=== PATIENT | female | born 1950 | race Caucasian/White ===

== ENCOUNTER 2018-02-06 11:52 | Outpatient (CLI) | payer MEDICARE ==
--- NOTE | 2018-02-06 14:48 | BD ---
DEXA BONE DENSITY SCAN: DATE: 02/06/2018. COMPARISON: None. HISTORY: Postmenopausal female undergoing screening for osteoporosis. FINDINGS: Lumbar Spine: BMD (g/cm2) L1 1.383 T-Score: 3.6 L2 1.447 T-Score: 3.8 L3 1.563 T-Score: 4.4 L4 1.361 T-Score: 2.7 L1-L4 1.433 T-Score: 3.5 Femoral Neck: 0.991 T-Score: 1.3 Total Femur: 1.373 T-Score: 3.5 FRAX-WHO fracture risk is not provided as all T-scores are at or above -1.0 Impression: Normal bone mineral density exam. POS: KASI
== END 2018-02-06 11:53 | disposition home or self-care (01) ==
LOC: BICMAMMO 11:52
PROVIDERS: ATTEND Family Medicine
DX: Z12.31 Encounter for screening mammogram for malignant neoplasm of breast (principal); Z13.820 Encounter for screening for osteoporosis; Z78.0 Asymptomatic menopausal state; Z80.3 Family history of malignant neoplasm of breast
CPT/HCPCS: 77063; 77067; 77080

== ENCOUNTER 2018-03-27 10:38 | Outpatient (CLI) | payer MEDICARE ==
--- NOTE | 2018-03-27 12:10 | ULT ---
ULTRASOUND SOFT TISSUE OTHER: Date: 03/27/18 HISTORY: Thumb ligament tear. COMPARISON: Radiograph dated 02/08/15. 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 There is attenuation of the anterior oblique ligament. The radial collateral ligament of the metacarpophalangeal joint is intact. The ulnar collateral ligament of the metacarpophalangeal joint is completely torn with synovitis and scar tissues. There is widening of the joint in abduction. No significant first compartment tenosynovitis. IMPRESSION: Full thickness rupture of ulnar collateral ligament with widening of the joint in abduction. POS: OFF
== END 2018-03-27 10:39 | disposition home or self-care (01) ==
LOC: BICULT 10:38
PROVIDERS: ATTEND Orthopaedic Surgery Hand Surgery
DX: S63.641A Sprain of metacarpophalangeal joint of right thumb, initial encounter (principal)
CPT/HCPCS: 76999

== ENCOUNTER 2021-08-01 12:50 | Outpatient (CLI) | payer MEDICARE | END 2021-08-01 12:51 | disposition home or self-care (01) | LOC: BICMAMMO 12:50 | PROVIDERS: ATTEND Family Medicine | DX: N63.0 Unspecified lump in unspecified breast (principal); N64.89 Other specified disorders of breast | CPT/HCPCS: 76642; 77066; G0279 ==

== ENCOUNTER → 2021-08-03 | Day surgery (SDC) | payer MEDICARE | LOC: BICULT 12:41 | PROVIDERS: ATTEND Family Medicine | PROC: 0H9U0ZX Drainage of Left Breast, Open Approach, Diagnostic (ICD-10-PCS; principal; 2021-08-03) | DX: C50.412 Malignant neoplasm of upper-outer quadrant of left female breast (principal) | CPT/HCPCS: 19083; 88305; 88341; 88342 ==

== ENCOUNTER 2021-09-11 12:57 | Outpatient (CLI) | payer MEDICARE ==
[2021-09-11 14:07] LABS: #Basophils 0.1 10x3/uL (0.0-0.2); #Eosinphils 0.2 10x3/uL (0.0-0.5); #Monocytes 0.4 10x3/uL (0.0-1.1); #Neutrophils 4.1 10x3/uL (1.5-8.4); %Eosinophils 2.3 % (0.0-6.0); %Lymphocytes 32.5 % (18.0-47.0); %Monocytes 5.4 % (0.0-10.0); %Neutrophils 58.5 % (40.0-75.0); Hemoglobin 14.9 g/dL (12.0-15.5); Mean Corpuscular Hemoglobin 30.4 pg (27.0-33.0); Mean Platelet Volume 9.1 fl (7.4-10.4); Platelet Count 304 10x3/uL (150-450); RBC Distribution Width 12.9 % (11.5-14.5); White Blood Cell (WBC) Count 7.1 10x3/uL (3.5-10.5)
[2021-09-11 14:20] LABS: Anion Gap 16 mmol/L (10-20); BUN (Urea Nitrogen) 19 mg/dL (9.8-20.1); Calc. Creatinine Clearance 0 mL/min (70-130); Calcium 10.4 mg/dL (7.8-10.44); Carbon Dioxide 31 mmol/L (23-31); Chloride 100 mmol/L (98-107); Estimated GFR 88; Glucose 106 mg/dL (80-115); Potassium 4.2 mmol/L (3.5-5.1); Sodium 143 mmol/L (136-145)
== END 2021-09-11 12:58 | disposition home or self-care (01) ==
LOC: LABBT 12:57
PROVIDERS: ATTEND Surgery
DX: Z01.818 Encounter for other preprocedural examination (principal); Z20.822 Contact with and (suspected) exposure to COVID-19
CPT/HCPCS: 71046; 80048; 85025; 87811; 93005; 93010

== ENCOUNTER 2021-09-14 08:44 | Day surgery (SDC) | payer MEDICARE ==
[2021-09-13 10:23] VITALS: BMI 27.8
[2021-09-14] MEDS ORDERED: Acetaminophen 500 MG TAB ONE (10:47)
[2021-09-14] MEDS ORDERED: Lidocaine 1% MPF 2 ML VIAL ONE (10:52)
[2021-09-14] MEDS ORDERED: Lidocaine 1% w/Epinephrine 1:100K 20 ML VIAL ONE (12:11)
[2021-09-14] MEDS ORDERED: Bupivacaine 0.25% HCL 30 ML VIAL ONE (12:11)
[2021-09-14] MEDS ORDERED: Isosulfan Blue 50 MG/5 ML VIAL ONE (12:11)
[2021-09-14] MEDS ORDERED: fentaNYL Citrate/PF 100 MCG/2 ML SYRINGE ONE (12:16)
[2021-09-14] MEDS ORDERED: Levofloxacin 500 mg/D5W 100 ml Premix Bag ONE (12:40)
[2021-09-14] MEDS ORDERED: Phenylephrine 10 MG/ML VIAL ONE (12:44)
[2021-09-14] MEDS ORDERED: ePHEDrine 50 MG/ML VIAL ONE (12:44)
[2021-09-14] MEDS ORDERED: PROPOFOL 200 MG/20 ML VIAL ONE (12:44)
[2021-09-14] MEDS ORDERED: Lidocaine 1% PF 5 ML VIAL ONE (12:44)
[2021-09-14] MEDS ORDERED: Dexamethasone 20 MG/5 ML VIAL ONE (12:44)
[2021-09-14] MEDS ORDERED: Ondansetron PF 4 MG/2 ML Vial ONE (12:44)
== END 2021-09-14 17:27 | disposition home or self-care (01) ==
LOC: SDC 08:44
PROVIDERS: ATTEND Surgery
PROC: 0HBU0ZZ Excision of Left Breast, Open Approach (ICD-10-PCS; principal; 2021-09-14)
PROC: 07B60ZX Excision of Left Axillary Lymphatic, Open Approach, Diagnostic (ICD-10-PCS; 2021-09-14)
DX: C50.412 Malignant neoplasm of upper-outer quadrant of left female breast (principal); C77.3 Secondary and unspecified malignant neoplasm of axilla and upper limb lymph nodes; M19.90 Unspecified osteoarthritis, unspecified site; E11.9 Type 2 diabetes mellitus without complications; I10 Essential (primary) hypertension; Z17.0 Estrogen receptor positive status [ER+]; Z79.84 Long term (current) use of oral hypoglycemic drugs; Z88.0 Allergy status to penicillin; Z88.1 Allergy status to other antibiotic agents; Z88.8 Allergy status to other drugs, medicaments and biological substances; Z91.040 Latex allergy status
CPT/HCPCS: 19301; 38525; 38900; 76098; 78195; A9541; C1776; Q9968; 88307; 88342; J1100; J1956; J2370; J2405; J2704; J3490; S0020

== ENCOUNTER 2021-09-26 12:11 | Outpatient (CLI) | payer MEDICARE | END 2021-09-26 12:12 | disposition home or self-care (01) | LOC: LABBT 12:11 | PROVIDERS: ATTEND Surgery | DX: Z20.822 Contact with and (suspected) exposure to COVID-19 (principal) | CPT/HCPCS: 87811 ==

== ENCOUNTER 2021-09-29 07:53 | Day surgery (SDC) | payer MEDICARE ==
[2021-09-28 10:51] VITALS: BMI 26.9
[2021-09-29] MEDS ORDERED: Acetaminophen 500 MG TAB ONE (08:24)
[2021-09-29] MEDS ORDERED: Bupivacaine/Epinephrine 0.25% 30 ML VIAL ONE (10:12)
[2021-09-29] MEDS ORDERED: fentaNYL Citrate/PF 100 MCG/2 ML SYRINGE ONE (10:19)
[2021-09-29] MEDS ORDERED: Levofloxacin 500 mg/D5W 100 ml Premix Bag ONE (10:21)
[2021-09-29] MEDS ORDERED: Dexamethasone 20 MG/5 ML VIAL ONE (10:30)
[2021-09-29] MEDS ORDERED: Lidocaine 1% PF 5 ML VIAL ONE (10:30)
[2021-09-29] MEDS ORDERED: PROPOFOL 200 MG/20 ML VIAL ONE (10:30)
[2021-09-29] MEDS ORDERED: ePHEDrine 50 MG/ML VIAL ONE (10:30)
[2021-09-29] MEDS ORDERED: Ondansetron PF 4 MG/2 ML Vial ONE (10:30)
[2021-09-29] MEDS ORDERED: Fentanyl 100 MCG/2 ML VIAL ONE (12:06)
== END 2021-09-29 14:08 | disposition home or self-care (01) ==
LOC: SDC 07:53
PROVIDERS: ATTEND Surgery
PROC: 0HBU0ZZ Excision of Left Breast, Open Approach (ICD-10-PCS; principal; 2021-09-29)
DX: C50.812 Malignant neoplasm of overlapping sites of left female breast (principal); M19.90 Unspecified osteoarthritis, unspecified site; E11.9 Type 2 diabetes mellitus without complications; I10 Essential (primary) hypertension; Z17.0 Estrogen receptor positive status [ER+]; Z79.84 Long term (current) use of oral hypoglycemic drugs; Z79.899 Other long term (current) drug therapy; Z88.0 Allergy status to penicillin; Z88.1 Allergy status to other antibiotic agents; Z88.8 Allergy status to other drugs, medicaments and biological substances; Z91.040 Latex allergy status; Z91.048 Other nonmedicinal substance allergy status
CPT/HCPCS: 88307; 88341; 88342; J1100; J1956; J2405; J2704; J3010; J3490

== ENCOUNTER 2021-11-09 11:22 | Outpatient (CLI) | payer MEDICARE ==
[2021-11-09 13:33] LABS: Hemoglobin 15.1 g/dL (12.0-15.5); Mean Corpuscular HGB CONC 33.9 g/dL (32.0-36.0); Mean Corpuscular Hemoglobin 30.8 pg (27.0-33.0); Mean Corpuscular Volume 90.6 fl (81.6-98.3); Platelet Count 313 10x3/uL (150-450); RBC Distribution Width 12.9 % (11.5-14.5); Red Blood Cell (RBC) Count 4.91 10x6/uL (3.90-5.03); White Blood Cell (WBC) Count 5.5 10x3/uL (3.5-10.5)
[2021-11-09 13:59] LABS: Anion Gap 18 mmol/L (10-20); BUN (Urea Nitrogen) 17 mg/dL (9.8-20.1); Carbon Dioxide 28 mmol/L (23-31); Chloride 102 mmol/L (98-107); Potassium 3.7 mmol/L (3.5-5.1); Sodium 144 mmol/L (136-145)
[2021-11-09 14:00] LABS: Calc. Creatinine Clearance 0 mL/min (70-130); Calcium 10.3 mg/dL (7.8-10.44); Estimated GFR 89; Glucose 106 mg/dL (80-115)
== END 2021-11-09 11:23 | disposition home or self-care (01) ==
LOC: LABBT 11:22
PROVIDERS: ATTEND Surgery
DX: Z01.812 Encounter for preprocedural laboratory examination (principal); C50.812 Malignant neoplasm of overlapping sites of left female breast; Z20.822 Contact with and (suspected) exposure to COVID-19
CPT/HCPCS: 80048; 85027; 87811

== ENCOUNTER 2021-11-14 09:30 | Inpatient (IN) | payer MEDICARE ==
[2021-11-14] MEDS ORDERED: Acetaminophen 500 MG TAB ONE ×2 (10:27→10:28)
[2021-11-14] MEDS ORDERED: fentaNYL Citrate/PF 100 MCG/2 ML SYRINGE ONE ×2 (10:45→21:01)
[2021-11-14] MEDS ORDERED: Levofloxacin 500 mg/D5W 100 ml Premix Bag ONE ×2 (12:04→21:31)
[2021-11-14] MEDS ORDERED: Ketorolac Tromethamine 30 MG/ML VIAL ONE (12:12)
[2021-11-14] MEDS ORDERED: Ondansetron PF 4 MG/2 ML Vial ONE ×2 (12:12→21:24)
[2021-11-14] MEDS ORDERED: Phenylephrine 10 MG/ML VIAL ONE ×2 (12:12→21:24)
[2021-11-14] MEDS ORDERED: PROPOFOL 200 MG/20 ML VIAL ONE ×2 (12:12→21:24)
[2021-11-14] MEDS ORDERED: Lidocaine 1% MPF 2 ML VIAL ONE ×2 (12:12→21:24)
[2021-11-14] MEDS ORDERED: Dexamethasone 20 MG/5 ML VIAL ONE (12:12)
[2021-11-14] MEDS ORDERED: Fentanyl 100 MCG/2 ML VIAL ONE (14:38)
[2021-11-14] MEDS ORDERED: HYDROcodone/Acetaminophen 5/325 mg Tablet PO PRN ×2 (18:50→18:52)
[2021-11-14] MEDS ORDERED: Acetaminophen 325 MG TAB PO PRN (18:52)
[2021-11-14] MEDS ORDERED: Ibuprofen 600 MG TAB PO PRN (18:53)
[2021-11-14] MEDS ORDERED: Morphine 10 MG/ML VIAL SLOW IVP PRN (18:54)
[2021-11-14] MEDS ORDERED: Sodium Chloride 0.9% 1,000 ML IV SCH (19:00)
[2021-11-14] MEDS ORDERED: Bupivacaine/Epinephrine 0.25% 30 ML VIAL ONE (20:54)
[2021-11-14] MEDS ORDERED: Midazolam HCl 2 mg/2 ml Vial ONE (21:01)
[2021-11-14] MEDS ORDERED: Succinylcholine 200 MG/10 ml SYRINGE FS ONE (21:24)
[2021-11-14 21:47] LABS: Troponin I Less than 0.010 ng/mL (< 0.028)
[2021-11-14 22:19] VITALS: BMI 29.2
[2021-11-14] MEDS ORDERED: Ondansetron HCl/PF 4 MG/2 ML Vial IVP PRN (23:03)
[2021-11-14] MEDS ORDERED: Promethazine HCl 25 MG/ML VIAL IM PRN (23:03)
[2021-11-14] MEDS ORDERED: Promethazine HCl 25 MG/ML VIAL IVPB PRN (23:03)
[2021-11-15 03:36] LABS: #Basophils 0.1 thou/uL (0.0-0.2); #Lymphocytes 1.6 thou/uL (1.20-3.40); #Monocytes 0.9 thou/uL (0.11-0.59); #Neutrophils 9.2 thou/uL (1.40-6.50); %Basophils 0.5 % (0.0-1.0); %Eosinophils 0.1 % (0.0-10.0); %Lymphocytes 13.3 % (21.0-51.0); %Monocytes 7.8 % (0.0-10.0); %Neutrophils 78.3 % (42.0-75.0); Hemoglobin 12.3 g/dL (12.0-16.0); Mean Corpuscular HGB CONC 33.5 g/dL (32.0-36.0); Mean Corpuscular Hemoglobin 31.5 pg (27.0-31.0); Mean Platelet Volume 6.8 fL (7.4-10.4); Platelet Count 246 thou/uL (130-400); RBC Distribution Width 12.5 % (11.5-14.5); Red Blood Cell (RBC) Count 3.91 mill/uL (4.20-5.40); White Blood Cell (WBC) Count 11.8 thou/uL (4.8-10.8)
[2021-11-15 03:48] LABS: INR-International Normal Ratio 1.2; PTT 24.8 sec (22.9-36.1); Prothrombin Time 14.9 sec (12.0-14.7)
[2021-11-15 03:59] LABS: ALT (SGPT) 8 U/L (8-55); AST (SGOT) 12 U/L (5-34); Albumin 3.3 g/dL (3.4-4.8); Alkaline Phosphatase 33 U/L (40-110); Anion Gap 13 mmol/L (10-20); BUN (Urea Nitrogen) 16 mg/dL (9.8-20.1); Bilirubin, Total 0.8 mg/dL (0.2-1.2); Calc. Creatinine Clearance 99 mL/min (70-130); Calcium 7.9 mg/dL (7.8-10.44); Carbon Dioxide 23 mmol/L (23-31); Chloride 106 mmol/L (98-107); Estimated GFR 95; Globulin 2.1 g/dL (2.4-3.5); Glucose 134 mg/dL (80-115); Potassium 4.1 mmol/L (3.5-5.1); Protein, Total 5.4 g/dL (5.8-8.1); Sodium 138 mmol/L (136-145)
[2021-11-15] MEDS ORDERED: metFORMIN 500 MG TAB PO SCH (11:15)
[2021-11-15] MEDS: metFORMIN 500 MG TAB PO SCH (17:05)
[2021-11-15 17:18] LABS: #Basophils 0.1 thou/uL (0.0-0.2); #Lymphocytes 3.5 thou/uL (1.20-3.40); #Monocytes 0.7 thou/uL (0.11-0.59); #Neutrophils 3.7 thou/uL (1.40-6.50); %Basophils 0.9 % (0.0-1.0); %Eosinophils 0.6 % (0.0-10.0); %Lymphocytes 43.7 % (21.0-51.0); %Monocytes 8.2 % (0.0-10.0); %Neutrophils 46.6 % (42.0-75.0); Hemoglobin 11.2 g/dL (12.0-16.0); Mean Corpuscular HGB CONC 32.9 g/dL (32.0-36.0); Mean Corpuscular Hemoglobin 31.1 pg (27.0-31.0); Mean Corpuscular Volume 94.5 fL (78.0-98.0); Mean Platelet Volume 6.6 fL (7.4-10.4); Platelet Count 218 thou/uL (130-400); RBC Distribution Width 12.8 % (11.5-14.5); Red Blood Cell (RBC) Count 3.61 mill/uL (4.20-5.40); White Blood Cell (WBC) Count 7.9 thou/uL (4.8-10.8)
[2021-11-16 06:05] LABS: #Basophils 0.1 thou/uL (0.0-0.2); #Eosinphils 0.1 thou/uL (0.0-0.7); #Lymphocytes 2.5 thou/uL (1.20-3.40); #Monocytes 0.6 thou/uL (0.11-0.59); #Neutrophils 3.5 thou/uL (1.40-6.50); %Eosinophils 1.9 % (0.0-10.0); %Lymphocytes 36.6 % (21.0-51.0); %Monocytes 8.7 % (0.0-10.0); %Neutrophils 51.7 % (42.0-75.0); Hemoglobin 11.7 g/dL (12.0-16.0); Mean Corpuscular HGB CONC 33.9 g/dL (32.0-36.0); Mean Corpuscular Hemoglobin 32.4 pg (27.0-31.0); Mean Corpuscular Volume 95.5 fL (78.0-98.0); Mean Platelet Volume 6.7 fL (7.4-10.4); Platelet Count 205 thou/uL (130-400); RBC Distribution Width 12.7 % (11.5-14.5); Red Blood Cell (RBC) Count 3.61 mill/uL (4.20-5.40); White Blood Cell (WBC) Count 6.8 thou/uL (4.8-10.8)
[2021-11-16 07:55] VITALS: TEMP 98.1
[2021-11-16] MEDS ORDERED: Loratadine 10 MG TAB PO SCH (09:00)
[2021-11-16] MEDS ORDERED: Cyanocobalamin (Vitamin B-12) 1,000 MCG TAB PO SCH (09:00)
[2021-11-16] MEDS ORDERED: Cholecalciferol 1,000 UNITS (25 MCG) TAB PO SCH (09:00)
[2021-11-16] MEDS: metFORMIN 500 MG TAB PO SCH (09:39)
[2021-11-16 11:22] VITALS: BP 129/71
== END 2021-11-16 12:50 | disposition home or self-care (01) | DRG 580 ==
LOC: SDC 09:30 → SURG A 17:35 → OBSVTOIN 11-15 17:42
PROVIDERS: ADMIT Surgery; ATTEND Surgery
PROC: 0HTU0ZZ Resection of Left Breast, Open Approach (ICD-10-PCS; principal; 2021-11-14)
PROC: 30233N1 Transfusion of Nonautologous Red Blood Cells into Peripheral Vein, Percutaneous Approach (ICD-10-PCS; 2021-11-14)
PROC: 0JC60ZZ Extirpation of Matter from Chest Subcutaneous Tissue and Fascia, Open Approach (ICD-10-PCS; 2021-11-14)
PROC: 0W380ZZ Control Bleeding in Chest Wall, Open Approach (ICD-10-PCS; 2021-11-14)
DX: C50.912 Malignant neoplasm of unspecified site of left female breast (principal); M96.831 Postprocedural hemorrhage of a musculoskeletal structure following other procedure
CPT/HCPCS: 36415; 36416; 36430; 80053; 84484; 85025; 85610; 85730; 86850; 86900; 86901; 88307; 88341; 88342; 93005; 93010; C1713; J1100; J1885; J1956; J2250; J2370; J2405; J2704; J3010; P9016

== ENCOUNTER 2022-05-04 09:18 | Outpatient (CLI) | payer MEDICARE | END 2022-05-04 09:19 | disposition home or self-care (01) | LOC: BICMAMMO 09:18 | PROVIDERS: ATTEND Internal Medicine Hematology & Oncology | DX: Z13.820 Encounter for screening for osteoporosis (principal); C50.812 Malignant neoplasm of overlapping sites of left female breast; T38.6X5A Adverse effect of antigonadotrophins, antiestrogens, antiandrogens, not elsewhere classified, initial encounter | CPT/HCPCS: 77080 ==

== ENCOUNTER 2022-10-16 07:53 | Outpatient (CLI) | payer MEDICARE | END 2022-10-16 07:54 | disposition home or self-care (01) | LOC: BICMAMMO 07:53 | PROVIDERS: ATTEND Internal Medicine Hospice and Palliative Medicine | DX: N63.10 Unspecified lump in the right breast, unspecified quadrant (principal); M79.89 Other specified soft tissue disorders | CPT/HCPCS: 76642; 77065; G0279 ==

== ENCOUNTER 2023-05-08 07:21 | Outpatient (CLI) | payer MEDICARE | END 2023-05-08 07:22 | disposition home or self-care (01) | LOC: BICCT 07:21 | PROVIDERS: ATTEND Radiology Radiation Oncology | DX: C50.412 Malignant neoplasm of upper-outer quadrant of left female breast (principal); R91.1 Solitary pulmonary nodule | CPT/HCPCS: 71260; 82565 ==

== ENCOUNTER 2023-08-15 09:28 | Outpatient (CLI) | payer MEDICARE | END 2023-08-15 09:29 | disposition home or self-care (01) | LOC: BICCT 09:28 | PROVIDERS: ATTEND Internal Medicine Hematology & Oncology | DX: C50.812 Malignant neoplasm of overlapping sites of left female breast (principal); R91.1 Solitary pulmonary nodule | CPT/HCPCS: 71260; 82565 ==

== ENCOUNTER 2024-10-08 08:27 | Outpatient (CLI) | payer MEDICARE | END 2024-10-08 08:28 | disposition home or self-care (01) | LOC: BICCT 08:27 | PROVIDERS: ATTEND Internal Medicine Hematology & Oncology | DX: C50.812 Malignant neoplasm of overlapping sites of left female breast (principal); M89.8X8 Other specified disorders of bone, other site | CPT/HCPCS: 71250 ==

== ENCOUNTER 2024-10-15 12:50 | Outpatient (CLI) | payer MEDICARE ==
[~2024-10-15 12:50] MED LIST: Iopamidol 370 76% 100 ML VIAL ONE
[2024-10-15 13:23] LABS: Estimated GFR - POC 92.0
== END 2024-10-15 12:51 | disposition home or self-care (01) ==
LOC: CT 12:50
PROVIDERS: ATTEND Internal Medicine Hematology & Oncology
DX: C50.812 Malignant neoplasm of overlapping sites of left female breast (principal); G95.9 Disease of spinal cord, unspecified
CPT/HCPCS: 36415; 72129; 82565; Q9967

== ENCOUNTER 2024-11-11 08:45 | Outpatient (CLI) | payer MEDICARE | END 2024-11-11 08:46 | disposition home or self-care (01) | LOC: PET 08:45 | PROVIDERS: ATTEND Internal Medicine Hematology & Oncology | DX: C50.812 Malignant neoplasm of overlapping sites of left female breast (principal); M89.9 Disorder of bone, unspecified; J32.0 Chronic maxillary sinusitis | CPT/HCPCS: 78815; A9552 ==

== ENCOUNTER 2024-12-14 10:08 | Day surgery (SDC) | payer MEDICARE ==
[2024-12-11 12:02] VITALS: BMI 35.6
[2024-12-14] MEDS ORDERED: PROPOFOL 20 ML ONE (12:47)
[2024-12-14] MEDS ORDERED: Famotidine/PF 20 mg/2ml Vial ONE (13:47)
[2024-12-14 13:54] LABS: Anion Gap 14 mmol/L (10-20); BUN (Urea Nitrogen) 18 mg/dL (9.8-20.1); Calc. Creatinine Clearance 110 mL/min (70-130); Calcium 9.4 mg/dL (7.8-10.44); Carbon Dioxide 30 mmol/L (23-31); Chloride 99 mmol/L (98-107); Glucose 176 mg/dL (83-110); Potassium 3.5 mmol/L (3.5-5.1); Sodium 139 mmol/L (136-145)
[2024-12-14] MEDS ORDERED: Ondansetron PF 4 MG/2 ML Vial ONE (14:07)
[2024-12-14] MEDS ORDERED: Lidocaine 1% PF 5 ML VIAL ONE (14:07)
== END 2024-12-14 16:50 | disposition home or self-care (01) ==
LOC: MRI 10:08
PROVIDERS: ATTEND Radiology Radiation Oncology
DX: C79.51 Secondary malignant neoplasm of bone (principal); I10 Essential (primary) hypertension; E11.9 Type 2 diabetes mellitus without complications; M06.9 Rheumatoid arthritis, unspecified; Z91.040 Latex allergy status; Z88.0 Allergy status to penicillin; Z88.8 Allergy status to other drugs, medicaments and biological substances; Z88.1 Allergy status to other antibiotic agents; Z91.048 Other nonmedicinal substance allergy status; Z79.899 Other long term (current) drug therapy
CPT/HCPCS: 72157; 80048; J2250; J2704; J1100

== ENCOUNTER 2024-12-30 08:24 | Day surgery (SDC) | payer MEDICARE ==
[2024-12-30 08:55] LABS: #Basophils 0.09 10x3/uL (0.0-0.2); #Eosinophils 0.26 10x3/uL (0.0-0.7); #Monocytes 0.53 10x3/uL (0.11-0.59); #Neutrophils 5.69 10x3/uL (1.40-6.50); %Basophils 1.1 % (0.0-1.0); %Eosinophils 3.2 % (0.0-10.0); %Lymphocytes 17.4 % (21.0-51.0); %Monocytes 6.6 % (0.0-10.0); %Neutrophils 70.8 % (42.0-75.0); Hematocrit 43.8 % (36.0-47.0); Hemoglobin 14.0 g/dL (12.0-16.0); Mean Corpuscular Hemoglobin 29.5 pg (27.0-31.0); Mean Corpuscular Volume 92.2 fL (78.0-98.0); Platelet Count 259 10x3/uL (130-400); Red Blood Cell (RBC) Count 4.75 mill/uL (4.20-5.40); White Blood Cell (WBC) Count 8.04 10x3/uL (4.8-10.8)
[2024-12-30 09:16] LABS: INR-International Normal Ratio 0.9; PTT 27.5 sec (22.9-36.1); Prothrombin Time 12.7 sec (12.0-14.7)
[2024-12-30 10:49] VITALS: BP 174/85
[2024-12-30] MEDS ORDERED: FLU (Fluad Triv) 25-26 (65UP)PF 45 MCG/0.5 ML Syringe IM ONE (11:00)
[2024-12-30] MEDS ORDERED: Sodium Bicarbonate 2.5 MEQ/5 ML SDV ONE (11:18)
[2024-12-30] MEDS ORDERED: Lidocaine 1% w/Epinephrine 1:100K 20 ML VIAL ONE (11:18)
[2024-12-30] MEDS ORDERED: diphenhydrAMINE 50 MG/ML VIAL ONE (11:20)
[2024-12-30] MEDS ORDERED: Ondansetron PF 4 MG/2 ML Vial ONE (11:20)
== END 2024-12-30 14:00 | disposition home or self-care (01) ==
LOC: CT 08:24
PROVIDERS: ATTEND Radiology Radiation Oncology
PROC: 07DR3ZX Extraction of Iliac Bone Marrow, Percutaneous Approach, Diagnostic (ICD-10-PCS; principal; 2024-12-30)
DX: C79.51 Secondary malignant neoplasm of bone (principal); C50.412 Malignant neoplasm of upper-outer quadrant of left female breast; E11.9 Type 2 diabetes mellitus without complications; Z90.12 Acquired absence of left breast and nipple; Z88.0 Allergy status to penicillin; Z88.1 Allergy status to other antibiotic agents; Z88.8 Allergy status to other drugs, medicaments and biological substances; Z91.040 Latex allergy status; Z79.84 Long term (current) use of oral hypoglycemic drugs; Z79.899 Other long term (current) drug therapy
CPT/HCPCS: 20225; 36000; 36415; 77002; 77012; 85025; 85610; 85730; 88333; 88334; C1830; J2405; J3010; 88307; 88311; 88341; 88342; J1200

== ENCOUNTER 2025-02-23 08:45 | Outpatient (CLI) | payer MEDICARE | END 2025-02-23 08:46 | disposition home or self-care (01) | LOC: PET 08:45 | PROVIDERS: ATTEND Internal Medicine Hematology & Oncology | DX: C50.812 Malignant neoplasm of overlapping sites of left female breast (principal); M89.9 Disorder of bone, unspecified | CPT/HCPCS: 78815; A9552 ==